=== PATIENT | male | born 2000 | race Caucasian/White ===

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

== ENCOUNTER 2020-01-25 18:12 | Emergency (ER) | payer BC ==
[~2020-01-25] VITALS: Ht 177.8 cm; Wt 56.0 kg
[2020-01-25 18:20] VITALS: BP 125/83
== END 2020-01-25 19:11 | disposition home or self-care (01) ==
LOC: ER 18:13
DX: M79.642 Pain in left hand (principal); W21.03XA Struck by baseball, initial encounter; Y93.67 Activity, basketball; Y92.89 Other specified places as the place of occurrence of the external cause; Y99.8 Other external cause status
CPT/HCPCS: 73130; 99283

== ENCOUNTER 2020-07-27 20:38 | Emergency (ER) | payer BC ==
[~2020-07-27] VITALS: Ht 180.3 cm; Wt 71.8 kg
[2020-07-27 20:42] VITALS: BP 117/71
== END 2020-07-27 21:50 | disposition home or self-care (01) ==
LOC: ER 20:39
DX: M25.562 Pain in left knee (principal)
CPT/HCPCS: 29505; 73564; 99283

== ENCOUNTER 2020-08-22 14:57 | Outpatient (CLI) | payer BC | END 2020-08-22 23:59 | disposition home or self-care (01) | LOC: RAD 14:57 | PROVIDERS: ATTEND Physician Assistant | DX: S83.512A Sprain of anterior cruciate ligament of left knee, initial encounter (principal); S83.212A Bucket-handle tear of medial meniscus, current injury, left knee, initial encounter; X58.XXXA Exposure to other specified factors, initial encounter; Y93.89 Activity, other specified; Y92.89 Other specified places as the place of occurrence of the external cause; Y99.8 Other external cause status | CPT/HCPCS: 73721 ==

== ENCOUNTER 2020-12-06 09:05 | Day surgery (SDC) | payer BC ==
[2020-11-27 11:42] LABS: BASOPHILS % (AUTO) 0.3 % (0-1); EOSINOPHILS # (AUTO) 0.1 X10'3 (0-0.9); EOSINOPHILS % (AUTO) 1.3 % (0-6); LYMPHOCYTES # (AUTO) 0.8 X10'3 (1.1-4.8); LYMPHOCYTES % (AUTO) 11.2 % (21-51); MEAN CORPUSCULAR HEMOGLOBIN 30.9 PG (27.0-31.0); MEAN CORPUSCULAR HGB CONC 32.8 g/dL (33.0-36.5); MEAN CORPUSCULAR VOLUME 94.2 FL (78-98); MONOCYTES # (AUTO) 0.6 X10'3 (0-0.9); MONOCYTES % (AUTO) 8.3 % (2-12); NEUTROPHILS # (AUTO) 5.8 X10'3 (1.8-7.7); NEUTROPHILS % (AUTO) 78.9 % (42-75); PRE OP HEMATOCRIT 43.2 % (42.0-52.0); PRE OP HEMOGLOBIN 14.2 g/dL (14.0-17.9); PRE OP PLATELET COUNT 229 X10'3 (140-440); RED BLOOD COUNT 4.58 X10'6 (4.70-6.10); RED CELL DISTRIBUTION WIDTH 13.7 % (11.5-14.5)
[2020-11-27 11:51] LABS: ALBUMIN 4.3 G/DL (3.4-5.0); ALBUMIN/GLOBULIN RATIO 1.3 (1.1-1.5); ALKALINE PHOSPHATASE 129 IU/L (20-180); BLOOD UREA NITROGEN 16 MG/DL (7-18); BUN/CREATININE RATIO 17.8 (5.4-32.0); CALCIUM 8.7 MG/DL (8.5-10.1); CHLORIDE 104 MMOL/L (99-107); PRE OP ALT 34 U/L (30-65); PRE OP ANION GAP 10 (8-16); PRE OP AST 49 U/L (10-37); PRE OP BILIRUB, TOTAL 0.6 MG/DL (0.0-1.0); PRE OP GLUCOSE 101 MG/DL (70-104); PRE OP POTASSIUM 4.1 MMOL/L (3.4-5.1); PRE OP SODIUM 141 MMOL/L (135-145); TOTAL CARBON DIOXIDE 26.6 MMOL/L (24-32); TOTAL PROTEIN 7.7 G/DL (6.4-8.2); eGFR > 90 ML/MIN
[2020-12-06] VITALS (10 sets, daily range): BP systolic 92–133; BP diastolic 45–65
[~2020-12-06] VITALS: Ht 180.3 cm; Wt 69.2 kg
[~2020-12-06 09:05] MED LIST: NO HOME MEDS; cefazolin/dext.iso 2gm/100ml IV ONE; famotidine 20mg tablet PO ONE; ringers solution, lacted 1,000 ML IV SCH; vancomycin 1,500 MG in NS 300ml IV soln IV ONE
[2020-12-06] MEDS ORDERED: meperidine/PF 25mg/ml syringe IV PRN ×3 (09:30)
[2020-12-06] MEDS ORDERED: morphine 4 MG/ML inj SYRINge IV PRN (09:30)
[2020-12-06] MEDS ORDERED: morphine 2 MG/ML inj. syringe IV PRN (09:30)
[2020-12-06] MEDS ORDERED: proCHLORperazine 10 MG/2 ml inj IV PRN (09:30)
[2020-12-06] MEDS ORDERED: ringers solution, lacted 1,000 ML IV SCH (09:30)
[2020-12-06] MEDS ORDERED: ondansetron/PF 4mg/2ml inj IV PRN (09:30)
[2020-12-06] MEDS ORDERED: ROPIVAcaine 0.5% (5mg/ml) 30ml vial ONE ×2 (10:13→13:14)
[2020-12-06] MEDS ORDERED: dexamethasone sod phosphate 10mg/ml inj ONE (10:54)
[2020-12-06] MEDS ORDERED: LIDOcaine 1%/PF 5ML 10 MG/ML VIAL ONE (10:54)
[2020-12-06] MEDS ORDERED: sevoflurane 250ml liquid IH ONE (10:54)
[2020-12-06] MEDS ORDERED: fentaNYL/PF 50MCG/1 ML 2ML syringe ONE (10:57)
[2020-12-06] MEDS ORDERED: midazolam 1 mg/ML 2ml injection ONE (10:58)
[2020-12-06] MEDS ORDERED: propofol inj 20 ML IV ONE (12:41)
--- NOTE | 2020-12-06 12:48 | NUR ---
Received from OR via [facility], accompanied by Anesthesiologist GIOVANA and report given by Anesthesiolgist. VSS. PT. AROUSABLE TO STIMULI, O2 AT 10 L. VIA MASK, IV 20 G IN RIGHT HAND INFUSING LR AT 100 ML/HR. L. KNEE DRESSING GAUZE AND LISSETH CDI. PT. DENIES PAIN. TURNED SELF ONTO LEFT SIDE. Addendum: 12/06/20 at 1323 by Gina Garcia RN Amended: Links added.
[2020-12-06] MEDS ORDERED: ondansetron/PF 4mg/2ml inj ONE (13:14)
--- NOTE | 2020-12-06 13:47 | NUR ---
DAD AT BEDSIDE. HE RECEIVED INSTRUCTIONS/ EXPLANANTION FROM DR. GALICIA. PT. AWAKE AND ALERT BUT A LITTLE UNSTEADY WITH HIS UPPER BODY. FLUIDS AT BEDSIDE. DENIES PAIN. L. KNEE DRESSING CDI. IV CONTINUES IN L. HAND LR AT 100 ML/HR. Addendum: 12/06/20 at 1349 by Gina Garcia RN Amended: Links added.
--- NOTE | 2020-12-06 14:08 | NUR ---
PT. DISCHARGED WITH DAD VIA WC TO CAR. PT. ABLE TO AMBULATE AND TRANSFER WELL. TOLERATED FLUIDS WELL. VSS, DENIED PAIN. IV IN LEFT HAND REMOVED. A&OX4. KELIX AND LISSETH ON L. KNEE CDI. NO DRAINAGE NOTED. PT. MET ALL DC CRITERIA. DAD PRESENT FOR ALL INSTRUCTIONS. BOTH PT. AND DAD UNDERSTOOD INSTRUCTIONS. PRESCRIPTION GIVEN TO DAD. Addendum: 12/06/20 at 1416 by Gina Garcia RN Amended: Links added.
== END 2020-12-06 14:08 | disposition home or self-care (01) ==
LOC: PAS 09:05
PROVIDERS: ATTEND Orthopaedic Surgery
DX: S83.212A Bucket-handle tear of medial meniscus, current injury, left knee, initial encounter (principal); Z79.899 Other long term (current) drug therapy; Z20.822 Contact with and (suspected) exposure to COVID-19; G89.18 Other acute postprocedural pain; X58.XXXA Exposure to other specified factors, initial encounter; Y93.89 Activity, other specified; Y92.89 Other specified places as the place of occurrence of the external cause; Y99.8 Other external cause status
CPT/HCPCS: 29881; 36415; 64447; 76942; 80053; 82948; 85025; 93005; C1713; J1100; J2250; J2405; J2704; J3010; J3370; J7040; J7120; U0003; U0005; Z7506; Z7508; Z7512; A4215; A4618; A6449; A7000; J2795

== ENCOUNTER 2021-04-12 09:06 | Outpatient (CLI) | payer BC ==
[~2021-04-12 09:06] MED LIST changes: -cefazolin/dext.iso 2gm/100ml IV ONE; -famotidine 20mg tablet PO ONE; -ringers solution, lacted 1,000 ML IV SCH; -vancomycin 1,500 MG in NS 300ml IV soln IV ONE
== END 2021-04-12 23:59 | disposition home or self-care (01) ==
LOC: RAD 09:06
PROVIDERS: ATTEND Orthopaedic Surgery
DX: G57.22 Lesion of femoral nerve, left lower limb (principal)
CPT/HCPCS: 73552

== ENCOUNTER 2022-10-08 09:20 | Inpatient (IN) | payer BC ==
[~2022-10-08] VITALS: Ht 180.3 cm; Wt 76.0 kg
[2022-10-08 10:09] LABS: BASOPHILS % (AUTO) 0.2 % (0-1); EOSINOPHILS # (AUTO) 0.3 X10'3 (0-0.9); EOSINOPHILS % (AUTO) 4.2 % (0-6); HEMOGLOBIN 14.6 g/dl (14.0-17.9); LYMPHOCYTES # (AUTO) 1.2 X10'3 (1.1-4.8); LYMPHOCYTES % (AUTO) 18.7 % (21-51); MEAN CORPUSCULAR HEMOGLOBIN 31.1 PG (27.0-31.0); MEAN CORPUSCULAR HGB CONC 33.1 g/dL (33.0-36.5); MEAN PLATELET VOLUME 7.8 FL (7.4-10.4); MONOCYTES # (AUTO) 0.6 X10'3 (0-0.9); MONOCYTES % (AUTO) 8.9 % (2-12); NEUTROPHILS # (AUTO) 4.2 X10'3 (1.8-7.7); PLATELET COUNT 232 X10'3 (140-440); RED BLOOD COUNT 4.69 X10'6 (4.70-6.10); RED CELL DISTRIBUTION WIDTH 13.5 % (11.5-14.5); WHITE BLOOD COUNT 6.2 X10'3 (4.5-11.0)
[2022-10-08 10:24] LABS: ALANINE AMINOTRANSFERASE 24 U/L (12-78); ALBUMIN 4.2 G/DL (3.4-5.0); ALBUMIN/GLOBULIN RATIO 1.3 (1.1-1.5); ALKALINE PHOSPHATASE 122 IU/L (46-116); ANION GAP 9 (8-16); ASPARTATE AMINO TRANSFERASE 24 U/L (10-37); BILIRUBIN,TOTAL 0.5 MG/DL (0.1-1.0); BLOOD UREA NITROGEN 16 MG/DL (7-18); BUN/CREATININE RATIO 14.2 (10.0-20.0); CALCIUM 9.1 MG/DL (8.5-10.1); CHLORIDE 104 MMOL/L (99-107); CREATININE 1.13 MG/DL (0.60-1.10); GLUCOSE 106 MG/DL (70-104); POTASSIUM 4.3 MMOL/L (3.5-5.1); SODIUM 142 MMOL/L (135-145); TOTAL CARBON DIOXIDE 29.3 MMOL/L (24-32); TOTAL PROTEIN 7.4 G/DL (6.4-8.2); eGFR 81 ML/MIN
[2022-10-08 10:41] LABS: LIPASE 15274 U/L (73-393)
[2022-10-08] MEDS ORDERED: normal saline 1000ml 1,000 ML IV ONE ×2 (10:50→12:30)
[2022-10-08 11:20] LABS: CLARITY,URINE CLEAR (Clear); COLOR,URINE YELLOW (Yellow); GLUCOSE, URINE NEGATIVE (Neg); KETONES,URINE NEGATIVE (Neg); LEUKOCYTE ESTERASE ,URINE NEGATIVE (Neg); NITRITES, URINE NEGATIVE (Neg); OCCULT BLOOD,URINE NEGATIVE (Neg); PROTEIN,URINE NEGATIVE (Neg); UROBILINOGEN,URINE 0.2 E.U/dL (0.2-1.0)
[2022-10-08 11:23] LABS: UA COLLECTION TYPE CLN CATCH MIDSTREAM
[2022-10-08] MEDS ORDERED: potassium Cl 40MEQ/1/2NS 520ml 520 ML IV PRN (14:10)
[2022-10-08] MEDS ORDERED: ondansetron/PF 4mg/2ml inj IV PRN (14:10)
[2022-10-08] MEDS ORDERED: magnesium 4gm in 100ml NS 100 ML IV PRN (14:10)
[2022-10-08] MEDS ORDERED: metoclopramide 5 mg/ml inj IV PRN (14:10)
[2022-10-08] MEDS ORDERED: HYDROcodone/acetaminophen 5mg/325mg tablet PO PRN (14:10)
[2022-10-08] MEDS ORDERED: magnesium Cl slow-release 64mg tablet PO PRN (14:10)
[2022-10-08] MEDS ORDERED: potassium Cl 20 mEq SR tablet PO PRN ×2 (14:10)
[2022-10-08] MEDS ORDERED: magnesium 2GM in 50ml NS 50 ML IV PRN (14:10)
[2022-10-08] MEDS ORDERED: morphine 2 MG/ML inj. syringe IV PRN (14:10)
[2022-10-08] MEDS: normal saline 1000ml 1,000 ML IV SCH ×2 (14:34→23:30)
--- NOTE | 2022-10-08 15:54 | NUR ---
Patient in room ED 11. I have received report from Regine SAAVEDRA in the ED and had the opportunity to ask questions and assume patient care.
[2022-10-08 16:31] VITALS: BP 122/71
[2022-10-08 18:00] VITALS: BP 122/60
--- NOTE | 2022-10-08 18:00 | NUR ---
Patient in room ORTHO 4007. I have received report from Isabel SMITH and had the opportunity to ask questions and assume patient care.
--- NOTE | 2022-10-08 18:05 | NUR ---
Problems reprioritized. Patient report given, questions answered & plan of care reviewed with
[2022-10-08] MEDS: K and/or MAG REPLACEMENT MC SCH (19:07)
[2022-10-08 22:00] VITALS: BP 110/44
[2022-10-09] MEDS ORDERED: lactulose 20gm/30ml cup PO ONE (02:45)
[2022-10-09 06:10] LABS: ALBUMIN 3.9 G/DL (3.4-5.0); ANION GAP 7 (8-16); BLOOD UREA NITROGEN 11 MG/DL (7-18); BUN/CREATININE RATIO 12.4 (10.0-20.0); CALCIUM 9.3 MG/DL (8.5-10.1); CHLORIDE 105 MMOL/L (99-107); CREATININE 0.89 MG/DL (0.60-1.10); GLUCOSE 92 MG/DL (70-104); SODIUM 142 MMOL/L (135-145); TOTAL CARBON DIOXIDE 29.7 MMOL/L (24-32); eGFR > 90 ML/MIN
[2022-10-09 06:18] LABS: BASOPHILS % (AUTO) 0.4 % (0-1); EOSINOPHILS # (AUTO) 0.3 X10'3 (0-0.9); EOSINOPHILS % (AUTO) 4.3 % (0-6); HEMATOCRIT 45.3 % (42.0-52.0); HEMOGLOBIN 14.8 g/dl (14.0-17.9); LYMPHOCYTES # (AUTO) 1.4 X10'3 (1.1-4.8); LYMPHOCYTES % (AUTO) 21.6 % (21-51); MEAN CORPUSCULAR HEMOGLOBIN 31.2 PG (27.0-31.0); MEAN CORPUSCULAR HGB CONC 32.7 g/dL (33.0-36.5); MEAN CORPUSCULAR VOLUME 95.2 FL (78-98); MEAN PLATELET VOLUME 8.1 FL (7.4-10.4); MONOCYTES # (AUTO) 0.6 X10'3 (0-0.9); MONOCYTES % (AUTO) 9.8 % (2-12); NEUTROPHILS % (AUTO) 63.9 % (42-75); PLATELET COUNT 213 X10'3 (140-440); RED BLOOD COUNT 4.76 X10'6 (4.70-6.10); RED CELL DISTRIBUTION WIDTH 13.4 % (11.5-14.5); WHITE BLOOD COUNT 6.3 X10'3 (4.5-11.0)
--- NOTE | 2022-10-09 06:31 | NUR ---
Patient in room ORTHO 4007. I have received report from en RN and had the opportunity to ask questions and assume patient care.
[2022-10-09 07:14] VITALS: BP 110/53
[2022-10-09] MEDS: K and/or MAG REPLACEMENT MC SCH (08:00)
[2022-10-09] MEDS ORDERED: magnesium hydroxide 30ml (MOM) UD suspension PO ONE (08:40)
[2022-10-09] MEDS ORDERED: docusate sod 100mg capsule PO SCH (08:40)
[2022-10-09] MEDS: normal saline 1000ml 1,000 ML IV SCH (09:02)
[2022-10-09 09:10] LABS: CHOL/HDL RATIO 2.8 (0.00-4.99); CHOLESTEROL 112 MG/DL (0-200); HDL CHOLESTEROL 40 MG/DL (35-60); LDL CHOLESTEROL 66 MG/DL (50-100); TRIGLYCERIDES 46 MG/DL (20-135)
[2022-10-09] MEDS ORDERED: HYDR-3965 PO (16:08)
--- NOTE | 2022-10-09 17:02 | NUR ---
patient reports pain after eating , but which resoled after went to bathroom. Seen by DR Lara, able to tolerate lunch without pain. All DC instructions given to patient. patient DC home via private car with family member in stable condition.
== END 2022-10-09 16:00 | disposition home or self-care (01) | DRG 439 ==
LOC: ER 09:21 → ED HOLD 14:13 → ORTHO 4S 16:05
PROVIDERS: ADMIT Internal Medicine; ATTEND Internal Medicine
DX: K85.90 Acute pancreatitis without necrosis or infection, unspecified (principal); N17.9 Acute kidney failure, unspecified; F17.200 Nicotine dependence, unspecified, uncomplicated; E86.0 Dehydration; K59.00 Constipation, unspecified; K82.4 Cholesterolosis of gallbladder
CPT/HCPCS: 36415; 74018; 76700; 80048; 80053; 80061; 81003; 83690; 83735; 85025; 87081; 99285; G0378; J7030